=== PATIENT | male | born 1985 | race Two or more races ===

== ENCOUNTER 2017-03-13 19:56 | Emergency (ER) | payer MEDICAID ==
[~2017-03-13] VITALS: Ht 182.9 cm; Wt 93.9 kg
[2017-03-13 20:26] VITALS: BP 137/90
[2017-03-13 20:44] LABS: Urine Bacteria FEW /hpf (None Seen); Urine Blood 1+ /uL (Negative); Urine Mucus FEW (None Seen); Urine Specific Gravity 1.024 (1.001-1.035); Urine WBC 1 /hpf (0 - 3)
[2017-03-13 21:03] LABS: Amphetamine Screen, Urine NEGATIVE (NEGATIVE); Barbiturate Scree,Urine NEGATIVE (NEGATIVE); Benzodiazephine Screen, Urine NEGATIVE (NEGATIVE); Cannabinoid Screen, Urine POSITIVE (NEGATIVE); Cocaine Screen, Urine NEGATIVE (NEGATIVE); Opiate Scree,Urine NEGATIVE (NEGATIVE); Phencyclidine Screen, Urine NEGATIVE (NEGATIVE)
[2017-03-13 21:04] LABS: Basophils # (auto) 0.1 uL; Basophils % (auto) 0.4 % (0.0-2.0); Eosinophils # (auto) 0 uL; Hematocrit 49.3 % (41.0-53.0); Hemoglobin 16.8 g/dL (13.5-17.5); Lymphocytes # (auto) 0.4 uL; Lymphocytes % (auto) 2.8 % (10.0-50.0); Mean Corpuscular Hemoglobin 31.8 pg (28.0-32.0); Mean Corpuscular Volume 93.4 fL (80.0-100.0); Monocytes # (auto) 1.6 uL; Monocytes % (auto) 10.3 % (0.0-12.0); Neutrophils # (auto) 13.2 uL; Neutrophils % (auto) 86.5 % (37.0-80.0); Platelet Count (auto) 266 10^3/uL (140-450); Red Blood Cells 5.28 10^6/uL (4.5-5.90); Red Cell Distribution Width 13.1 % (11.8-14.3); White Blood Cell 15.2 10^3/uL (4.4-10.8)
[2017-03-13 21:39] LABS: Alanine Aminotransferase 103 U/L (16-61); Alkaline Phosphatase 66 U/L (45-117); Amylase 482 U/L (25-115); Anion Gap 20 (5-15); Aspartate Aminotransferase 138 U/L (15-37); BUN/Creatinine Ratio 8.9; Bilirubin, Total 0.7 mg/dL (0.2-1.0); Blood Urea Nitrogen 8 mg/dL (7-18); Calcium 8.8 mg/dL (8.5-10.1); Carbon Dioxide 18 mmol/L (21-32); Chloride 99 mmol/L (98-107); GFR African American 128 mL/min; GFR Non-African American 106 mL/min; Glucose 130 mg/dL (74-106); Lipase 5846 U/L (73-393); Potassium 3.9 mmol/L (3.5-5.1); Sodium 137 mmol/L (136-145); Total Protein 8.5 g/dL (6.4-8.2)
== END 2017-03-14 00:29 | disposition left against medical advice (07) ==
LOC: ER 19:56 → EDBD 19:56 → ER 03-14 00:29
DX: R10.9 Unspecified abdominal pain (principal); Z53.21 Procedure and treatment not carried out due to patient leaving prior to being seen by health care provider
CPT/HCPCS: 36415; 80053; 80307; 80320; 81001; 82150; 83690; 84484; 85025